=== PATIENT | male | born 1950 | race Caucasian/White ===

== ENCOUNTER 2025-03-04 21:39 | Inpatient (IN) | payer OTHER, SELFPAY ==
[2025-03-04] VITALS (8 sets, daily range): BP systolic 71–152; BP diastolic 49–87; BMI 22.4; BMI 22.0
--- NOTE | 2025-03-04 19:13 | ED.GENMED ---
History of Present Illness
General
Chief Complaint: Unresponsive
Source: ambulance crew
Time Seen by Provider: 03/04/25 19:06
History of Present Illness
History of Present Illness:
74-year-old male brought to the emergency room from [facility] where he has been unresponsive. Medics state the patient was under hospice care for severe dementia. For some reason or another his status was changed prompting his
transport here to the emergency room. Patient is unresponsive and unable to provide any history. Called to discuss with the patient's at left a message.
Past History
Past History
ED Past Medical History: CVA, HTN and IDDM
Social History
Tobacco: Former smoker
Alcohol: None
Phy Exam
Physical Exam
Physical Exam:
General: Nonresponsive, appears chronically ill but also acutely ill
Vitals: Febrile at 104, tachycardic, hypotensive
Head: Atraumatic
Eyes: Pupils equal, EOMI
Throat: Airway intact, dry mucosa, pooling of secretions in the posterior pharynx
Neck: Trachea midline
Lungs: Rhonchi bilateral
Heart: Regular rate, no murmurs
Abd: Soft, Nontender, No pulsatile mass
Neuro: No voluntary movement of the extremities
Skin: Warm, dry, no rash
Extremities: pulses equal b/l, no edema
Sepsis
Sepsis Screening
Sepsis Assessment: Severe Sepsis
Sepsis Screening: Lactate >2mmol/L and Hypotension
Sepsis Screen
Sepsis Screen: Severe Sepsis
Date: 03/05/25
Time: 00:21
Course
Orders/Labs/Results
Orders:
Orders
03/04/25 18:55
Electrocardiogram (*1) Urgent
Reason for Study: Other
Other Reason for Exam: Respiratory Distress
Cardiac Monitoring- Treatment ONCE
EKG- Treatment ONCE
IV Insert/Care/Rem.- Treatment PRN
CR Chest Portable - 1 View Urgent
Comment:
Reason For Exam: respiratory distress
Reason Study Needs to be Portable: Patient Unstable
03/04/25 19:07
0.9% Sodium Chloride 1000 ml [Nss] 1,000 ml IV BOLUS
Acetaminophen [Tylenol/Feverall] 650 mg RECTAL NOW STA
03/04/25 19:10
CT Head W/o Iv Contrast Urgent
Comment:
Reason For Exam: altered mental status
03/04/25 19:17
Complete Blood Count/With Diff Urgent
Comprehensive Metabolic Panel Urgent
Lactic Acid Q4H
Comment: WITH 1ST SET OF BLOOD CULTURES,CANCEL 2ND LACTIC ACID IF FIRST <2
NT-proBNP Urgent
Troponin I Urgent
Venous Blood Gas Urgent
%Oxygen/Room Air: 4L
Blood Culture Urgent
SPIKE Source: Blood/Venous
Specimen Description:
03/04/25 19:28
0.9% Sodium Chloride 1000 ml [Nss] 2,000 ml IV BOLUS
03/04/25 19:33
Urinalysis Reflex To Culture Urgent
Date Specimen was Collected: 03/04/25
Time Specimen was Collected: 19:32
Urine Microscopic Reflex Cult Urgent
03/04/25 19:34
Blood Culture Urgent
SPIKE Source: Blood/Venous
Specimen Description:
Date Specimen was Collected: 03/04/25
Time Specimen was Collected: 19:32
03/04/25 20:10
Piperacillin/Tazo 4.5 Gram [Zosyn] 4.5 gram in 100 ml IV NOW
03/04/25 21:16
Morphine Sulfate See Protocol IV [id number] PRN
Begin protocol on step:: refer to Morphine infusion order
03/04/25 21:18
Vancomycin [Vancocin] 1,500 mg 0.9% Sodium Chloride 500 ml [Nss] 500 ml IV NOW
03/04/25 21:23
Admit/Transfer Patient As Directed
Co-Sign Provider:
Level of Care: Inpatient admission
Assign to:: Medical/Surgical
Physician / Group: Fernando Early
Diagnosis: severe sepsis, end-of-life care
Reason for Hospitalization: severe sepsis, end-of-life care
Expected length of stay greater than two midnights?: Yes
ELOS- Estimated Length of Stay in days: 3
I certify the patient meets the requirements for IP care: Yes
PRN Pain Medication Management As Directed
May give lesser potent ordered pain med per pt: Yes
preference::
Protocol:: Medication orders for pain may be administered in a
manner that supports deferring to patient preference
when the pt is:
- Requesting an ordered lesser potent pain medication.
Least to most potent pain medications are defined
as: acetaminophen < NSAID < tramadol < opioids
(morphine, oxycodone, hydromorphone).
- Requesting a lesser dose of the same medication IF
ORDERED.
- Requesting a less intrusive route of administration
if both routes are prescribed by the provider (PO <
IV).
03/04/25 21:24
Code Status As Directed
Resuscitation Status: Do not resuscitate
Reached after discussion with pt or family/Healthcare POA: Yes
Decision communicated with: patients spouse
DNR Bracelet Application ONCE
03/04/25 21:30
Morphine Sulfate 100 mg/100 ml [Morphine] 100 mg in 100 ml IV PER PROTOCOL
Begin protocol on step:: 1
03/04/25 21:32
Glycopyrrolate [Robinul] 0.2 mg IV Q4HPRN PRN
03/04/25 22:43
Bisacodyl [Dulcolax] 10 mg RECTAL DAILYPRN PRN
Lorazepam [Ativan] 1 mg IV Q2HPRN PRN
Ondansetron Injectable [Zofran] 4 mg IV Q6HPRN PRN
03/04/25 22:43
Case Management Consult ONCE
Case Management Consult: Hospice
Hospice: Evaluation and treat
VTE Contraindication Routine
VTE Mechanical Device Contraindication: Comfort Care mgmt
Pharmocologic Contraindication: Comfort Care mgmt
Activity As Directed
Activity Level: As Tolerated
Comfort Measures As Directed
Comment: Pain and Dyspnea assessment every 4 hours
End of Life Symptom Assessment Q4
INT (Intravenous Needle Therapy) As Directed
Vital Signs As Directed
Frequency: Per unit guidelines
03/05/25 03:00
Acetaminophen [Tylenol/Feverall] 650 mg RECTAL Q4HPRN PRN
Acetaminophen [Tylenol] 650 mg PO Q4HPRN PRN
Abnormal Lab Results
03/04/25 03/04/25
19:17 19:33
RBC 3.63 L 10^6/uL
(4.70-6.10)
Hgb 10.2 L g/dL
(13.0-18.0)
Hct 30.5 L %
(39.0-52.0)
Absolute Lymphs (auto) 0.6 L 10^3/uL
(1.2-3.4)
Absolute Monos (auto) 0.7 H 10^3/uL
(0.1-0.6)
Neutrophils % 81.3 H %
(42.2-75.2)
Lymphocytes % 8.0 L %
(20.5-51.1)
Monocytes % 9.9 H %
(1.7-9.3)
VBG pH 7.45 H
(7.32-7.43)
VBG pO2 62 H mmHg
(30-50)
VBG HCO3 32.7 H mmol/L
(22-27)
Carbon Dioxide 31 H mmol/L
(22-30)
BUN 26 H mg/dl
(9-20)
Glucose 320 H mg/dl
(70-99)
Lactic Acid 3.3 H mmol/L
(0.7-2.0)
Calcium 8.2 L mg/dl
(8.4-10.2)
Alkaline Phosphatase 417 H U/L
(38-126)
Total Protein 4.9 L g/dl
(6.3-8.2)
Albumin 2.3 L g/dl
(3.5-5.0)
Urine Ketones 3+ A
(Negative)
Urine Urobilinogen 3+ A
(Neg - 1+)
Urine Albumin (Reflex) 2+ A
(Neg - Trace)
03/04/25 19:17
03/04/25 19:17
Vital Signs
Initial and Last Documented VS:
Initial Vital Signs
Temp Pulse BP Pulse Ox
104 F H 123 76/52 98
03/04/25 18:52 03/04/25 18:52 03/04/25 18:52 03/04/25 18:52
Last Documented Vital Signs
Temp Pulse Resp BP Pulse Ox
102.4 F H 136 24 152/87 91
03/04/25 23:10 03/04/25 23:10 03/04/25 23:10 03/04/25 23:10 03/04/25 23:10
MDM/Problems Addressed
Differential Diagnosis Includes:
Severe sepsis, septic shock from UTI, pneumonia, wound infections
MDM/Problems Addressed:
Patient presents with decreased mental status, fever, tachycardia. Fluid resuscitation initiated pending conversation with family. Source of infection appears to be pneumonia and possibly his wound. Broad-spectrum antibiotics initiated.
Discussed patient's status with family. Initially they wanted 'everything done'. We did discuss his quality of life and whether he would truly want to be kept alive on a ventilator or have CPR. After discussing the details of these interventions
the family has decided to make him a DNR. Given his overall poor condition, decubiti, likely aspiration pneumonia at seemingly severe dementia comfort measures would be appropriate. However I did not get the impression they are quite prepared to
make that decision.
*Pulse Oximetry
SaO2: 98
Oxygen Mode of Delivery: Non-rebreather mask
Patient hypoxic: no
*EKG
Interpreted by ED Provider?: Yes
Heart Rate: 123
Rate: tachycardiac
Rhythm: sinus tachycardia
[place]: normal axis
Interval: normal interval
QRS Pattern: normal QRS
Ischemia: non-specific ST changes
*Paper Novelty Maker Interpretation
Rate: tachycardiac
Interpretation: abnormal
Rhythm: sinus tachycardia
*Critical Care Note
Total Time (30-74mins, 75-104mins- exclusive of procedures): 41 min
comment:
Critical care statement: A total of 41 minutes of critical care time was provided for this patient. This includes management of unstable vital signs, evaluation of the patient at bedside, reviewing the patient's pertinent medical records, discussion
with consultants, review of old EKGs and review of pertinent medical records. This time with separate from time utilized to perform the aforementioned documented procedures
ED Attending Note
-
Portions of this chart may have been created with voice recognition software.� Occasional wrong word or��sound alike� substitutions may have occurred due to the inherent limitations of voice recognition software.
Discharge Plan
Departure
Patient Disposition: Admit
Date of Disposition: 03/04/25
Time of Disposition: 20:15
Presentation/result/management discussed w/ accepting MD/DO: Hospitalist
Condition: Fair
Discharge Problem:
Pneumonia, Sepsis
Interventions
Interventions:
*Risk Screen - Suicide Last Done: 03/04/25 19:08
*General Assessment Last Done: 03/04/25 19:09
*Neglect/Abuse Screening Last Done: 03/04/25 19:01
*ED- Fall Risk Assessment Last Done: 03/04/25 19:00
*ED COVID-19 Vaccine History Last Done: 03/04/25 19:00
*Nursing Disposition Last Done: 03/04/25 22:50
ED- Neurological Assessment Last Done: 03/04/25 19:05
Discharge Date and Time
Discharge Date/Time: 03/04/25 22:51
[2025-03-04 19:25] LABS: % Basophils 0.3 % (0-2); % Eosinophils 0.1 % (0-6); % Immature Granulocytes 0.4 % (0-0.5); % Monocytes 9.9 % (1.7-9.3); % Neutrophils 81.3 % (42.2-75.2); Absolute Lymphocytes 0.6 10^3/uL (1.2-3.4); Absolute Monocytes 0.7 10^3/uL (0.1-0.6); Absolute Neutrophils 5.6 10^3/uL (1.4-6.5); Hematocrit 30.5 % (39.0-52.0); Hemoglobin 10.2 g/dL (13.0-18.0); Mean Corp Hgb Conc. 33.4 g/dL (33.0-37.0); Mean Corpuscular Hgb 28.1 pg (27.0-31.0); Mean Platelet Volume 8.4 fL (7.4-10.4); Nucleated Red Blood Cells % 0 % (-); Platelet Count 386 10^3/uL (130-400); Red Blood Cell Count 3.63 10^6/uL (4.70-6.10); Red Cell Dist. Width 13.6 % (11.5-14.5); Venous Blood Gas B.E. 7.7 mmol/L (-4 to +4); Venous Blood Gas HCO3 32.7 mmol/L (22-27); Venous Blood Gas O2 Sat % 92.7 %; Venous Blood Gas pCO2 47 mmHg (35-48); Venous Blood Gas pH 7.45 (7.32-7.43); Venous Blood Gas pO2 62 mmHg (30-50); White Blood Cell Count 6.9 10^3/uL (4.8-10.8)
[2025-03-04 19:29] LABS: Venous Blood Gas O2 Therapy 4L
[2025-03-04 19:39] LABS: Lactic Acid 3.3 mmol/L (0.7-2.0)
[2025-03-04 19:49] LABS: Urine Albumin 2+ (Neg - Trace); Urine Bilirubin Negative (Negative); Urine Character Clear (Clear); Urine Color Yellow; Urine Glucose Negative (Negative); Urine Ketone 3+ (Negative); Urine Leukocyte Negative (Negative); Urine Nitrite Negative (Negative); Urine Occult Blood Negative (Negative); Urine Urobilinogen 3+ (Neg - 1+)
[2025-03-04 19:50] LABS: ALT (SGPT) < 10 U/L (0-50); AST (SGOT) 57 U/L (17-59); Albumin 2.3 g/dl (3.5-5.0); Alkaline Phosphatase 417 U/L (38-126); Blood Urea Nitrogen 26 mg/dl (9-20); Calcium 8.2 mg/dl (8.4-10.2); Carbon Dioxide 31 mmol/L (22-30); Chloride 103 mmol/L (98-107); Estimated Creatinine Clearance 80 ml/min; Glucose 320 mg/dl (70-99); Potassium 4.5 mmol/L (3.5-5.1); Sodium 138 mmol/L (135-145); Total Bilirubin 0.5 mg/dl (0.2-1.3); Total Protein 4.9 g/dl (6.3-8.2); eGFR > 60.00
[2025-03-04 20:07] LABS: Urine Hyaline Cast 0-2 /LPF (0-2); Urine Mucus Few; Urine Red Blood Cell 0-2 /HPF (0-2)
[2025-03-04 20:09] LABS: NT-proBNP 1570 pg/ml; Troponin I < 0.012 ng/ml
[2025-03-04] MEDS: NSS 2000 IV (20:15)
[2025-03-04] MEDS: TYLENOL/FEVERALL 650 MG RECTAL (20:33)
[2025-03-04] MEDS: ZOSYN 100 IV (20:33)
--- NOTE | 2025-03-04 20:38 | HPS.HSE ---
Family Physician
-
Family Physician: Gato Bell, DO
Chief Complaint
-
unresponsive
History of Present Illness
Patient is a 74-year-old male with past medical history significant for dementia, HFpEF, coronary artery disease, atrial fibrillation, hypertension, IDDM, history of CVA and hyperlipidemia who presented to [facility] ED from [facility] for
evaluation of unresponsiveness. Patient family at [facility] to assist with HPI. [facility] He became unresponsive and staff sent for evaluation. Patient with stage IV sacral wound that is
reported as foul smelling. Unknown symptoms prior to unresponsiveness.
Medical History
Past Medical History
Past Medical History: Reports Other
Additional Past Medical History:
dementia
HFpEF
coronary artery disease
atrial fibrillation
hypertension
IDDM
history of CVA
hyperlipidemia
Past Surgical History: Reports Other
Additional Past Surgical History:
CABG
Social History
Unable to obtain full social history at this time due to: Patient Non-verbal
Family History
Family History: Not pertinent
Allergies / Home Medications
Allergies reflects when Allergies were last updated in [employer].
Home Medications with original date entered in [employer]
Allergy/Medication List:
Allergies
Allergy/AdvReac Type Severity Reaction Status Date / Time
amlodipine Allergy Unknown Verified 07/10/23 14:20
clonidine Allergy Unknown Verified 07/10/23 14:20
hydrochlorothiazide (From Allergy Unknown Verified 07/10/23 14:20
Hyzaar)
losartan (From Hyzaar) Allergy Unknown Verified 07/10/23 14:20
minoxidil Allergy Unknown Verified 07/10/23 14:20
rosuvastatin Allergy Unknown Verified 07/10/23 14:20
Thiazides Allergy Unknown Verified 07/10/23 14:20
Home Medications
acetaminophen 325 mg tablet 650 mg PO Q6H PRN temp>100.4F/mild pain 03/04/25
acetaminophen 650 mg rectal suppository 650 mg IL Q6H PRN mild pain/elevated temp. 03/04/25
aspirin 81 mg tablet,delayed release 81 mg PO DAILY 03/04/25
bisacodyl 10 mg rectal suppository 10 mg IL DAILY PRN if MOM ineffective 03/04/25
carbidopa 25 mg-levodopa 100 mg tablet (Sinemet) 1 tab PO BID 03/04/25
divalproex 250 mg tablet,delayed release 250 mg PO BID 03/04/25
divalproex 500 mg tablet,delayed release 500 mg PO BID 03/04/25
docusate sodium 100 mg tablet 100 mg PO BID 03/04/25
furosemide 40 mg tablet 40 mg PO DAILY 03/04/25
hydralazine 50 mg tablet 50 mg PO BID 03/04/25
isosorbide mononitrate 60 mg tablet,extended release 24 hr 60 mg PO Q12H 03/04/25
lorazepam 2 mg/mL oral concentrate 2 mg PO Q8HPRN PRN agitation/anxiety 03/04/25
magnesium hydroxide 400 mg/5 mL oral suspension (Milk of Magnesia) 30 ml PO DAILY PRN constipation 03/04/25
melatonin 3 mg tablet 6 mg PO HS 03/04/25
metformin 500 mg tablet 1,000 mg PO BID 03/04/25
methimazole 5 mg tablet 2.5 mg PO DAILY 03/04/25
ondansetron HCl 4 mg tablet 4 mg PO Q8H PRN nausea/vomiting 03/04/25
potassium chloride 20 mEq tablet,extended release(part/cryst) 20 meq PO BID 03/04/25
quetiapine 25 mg tablet (Seroquel) 25 mg PO DAILY 03/04/25
quetiapine 50 mg tablet (Seroquel) 50 mg PO HS 03/04/25
sennosides 8.6 mg tablet (senna) 8.6 mg PO BID 03/04/25
sodium phosphates 19 gram-7 gram/118 mL enema (Fleet Enema) 118 ml IL DAILYPRN PRN constipation 03/04/25
sodium phosphates 19 gram-7 gram/118 mL enema (Fleet Enema) 118 ml IL DAILYPRN PRN if supp ineffective 03/04/25
Review of Systems
-
Unable to obtain full review of systems at this time due to: Patient Non-verbal
Physical Exam
Vital Signs
Vital Signs
Temp Pulse Resp BP Pulse Ox
104 F H 118 21 130/65 94
03/04/25 18:52 03/04/25 19:30 03/04/25 19:30 03/04/25 19:30 03/04/25 19:22
Physical Exam
General: Fever and Other (obtunded, hypotensive )
HEENT: Oxygen; No Moist mucous membranes
Respiratory: Clear and Rhonchi
Cardiac: S1/S2, Regular Rhythm and Tachycardia
Breast: Deferred by me
GI: Soft, Non Tender, Non Distended and Normal Bowel Sounds; No Organomegaly
Rectal: Deferred by Provider
Genito-urinary: Deferred by me
Musculoskeletal: No Clubbing, No Cyanosis and No Edema
Skin: IV/Catheter Site
Neuro: Nonfocal/grossly intact and Other (obtunded )
Laboratory Results
-
03/04/25 19:17
03/04/25 19:17
Laboratory Results
Lactic Acid 3.3 mmol/L (0.7-2.0) H 03/04/25 19:17
Total Bilirubin 0.5 mg/dl (0.2-1.3) 03/04/25 19:17
AST 57 U/L (17-59) 03/04/25 19:17
ALT < 10 U/L (0-50) 03/04/25 19:17
Alkaline Phosphatase 417 U/L (38-126) H 03/04/25 19:17
Troponin I < 0.012 ng/ml 03/04/25 19:17
Data Reviewed
-
CT Scan: Report Reviewed by me (Head: No acute intracranial abnormality noted.)
Lab Data: Labs Reviewed by me (Lactic 3.3, BNP 1570)
Impression/Plan
-
IMPRESSION/PLAN:
#change in mental status, unresponsive 2/2 sepsis from sacral wound infection??
Lactic 3.3, BNP [address]: No acute intracranial abnormality noted.
EKG: SINUS TACHYCARDIA
NONSPECIFIC ST ABNORMALITY
Blood cx: pending
Patient previously on hospice services at facility
- Admit to med/surg
- Comfort Care orders with morphine gtt
- Consult hospice services
#dementia
- stop Sinemet and Seroquel
#HFpEF
- stop furosemide, isosorbide and
#coronary artery disease
s/p CABG
- stop aspirin
#hypertension
- stop hydralazine and furosemide
#IDDM
- stop metformin
#hyperthyroid??
- stop methimazole
#atrial fibrillation
#history of CVA
#hyperlipidemia
Code status: DNR
DVT prophylaxis: n/a
--- NOTE | 2025-03-04 20:46 | W.PN.UPDATE ---
Update Note
Progress Note Update
This note serves as an addendum to the H&P by electric lift truck driver JEN Ann Lynn
HPI
74M Former smoker , [place] [facility] at [facility] under hospice care , severe dementia, non ambulatory, WC bound, minimally verbal, est ASCVD, HX CVA, HX CVA, IDDM, Prx AF , HLD, chr HFpEF, CAD, CABG, HTN seen at ER;
- under hospice care at [place] for advanced progressive dementia
- Febrile 104 , tachycardic, hypotensive
- unresponsive
- ER dw family and opted for DNR
Relevant VS
03/04/25
18:52 03/04/25
18:57 03/04/25
19:00
Temp 104 F H
Pulse 123
Resp Rate 24
Blood pressure 76/52 95/75
SaO2 98
Oxygen Mode of Delivery Non-rebreather
mask
PE
Gen: deeply unresponsive
HEENT: anicteric
Neck: supple
Skin: large stage IV decub with foul odor
Laboratory Tests
12/27/18 07/10/23 03/04/25
10:24 14:44 19:17
WBC 3.8 L 6.9
Hgb 13.3 10.2 L
Plt Function - Aspirin 452
VBG pH 7.45 H
VBG pCO2 47
VBG pO2 62 H
Carbon Dioxide 31 H
BUN 26 H
Creatinine 0.8
eGFR > 60.00
Glucose 320 H
Lactic Acid 3.3 H
Calcium 8.2 L
Troponin I < 0.012
Faf-V-Edwvblmyztf Pept 1570
Albumin 2.3 L
EKG
SINUS TACHYCARDIA
NONSPECIFIC ST ABNORMALITY
ABNORMAL ECG
WHEN COMPARED WITH ECG OF 10-JUL-2023 15:31,
VENT. RATE HAS INCREASED BY 42 BPM
NONSPECIFIC T WAVE ABNORMALITY NO LONGER EVIDENT IN ANTERIOR LEADS
CXR pending report
HCT
CT Head W/o Iv Contrast
Last hospitalist admission: 12/26/2018 - 12/28/2018
ASSESSMENT & PLAN
Critically ill with severe sepsis with severe hypotension s/p 2.1 L NS
Septic shock with likely source infected stage IV sacral decub +/_ PNA
Unresponsive due to profound TME with marked HYDROGRAPHIC SURVEYOR depression
Protecting AW so far
Multiple comorbidity as above
Advanced dementia / vascular severe dementia, non ambulatory, WC bound, minimally verbal, est ASCVD, HX CVA, HX CVA, IDDM, Prx AF , HLD, chr HFpEF, CAD, CABG, HTN
Under hospice care at [place]
- DNR
- Grave prognosis
- case discussed in length with spouse , son and daughter
- family agree with comfort measures only ( No more labs , No further ABx ) with end of life care
- Medications appropriate for comfort measures only
- Comfort measures only
- Hospice care consult
- Sharron service
- Private room
DVT Px contraindicated
[2025-03-04] MEDS: MORPHINE 100 IV (22:13)
[2025-03-04] MEDS: ROBINUL 0.2 MG IV (22:18)
[2025-03-05 07:00] VITALS: BP 101/54
--- NOTE | 2025-03-05 09:01 | CM ---
Reviewed the chart notes and spoke with [place] Master Brewer at [facility]. Per Steph, patient is chcf and wheelchair bound. CM consult for hospice received. Referral sent to Hospice via [facility]. CM continues to be available to
patient/family and is monitoring medical plan for needs at discharge.
Plan: Discharge plans will depend on the patient's progress.
--- NOTE | 2025-03-05 10:11 | W.PN.HOSP.TC ---
Addendum entered and electronically signed by Jaun Mccabe DO 03/06/25 14:05:
Stage I pressure injury of the right heel, POA
Original Note:
Today's Communication/Plan
-
Continue comfort care measures
Assessment / Plan
Assessment / Plan
Assessment/plan
74-year-old male with past medical history of severe dementia, HFpEF, CAD, A-fib, hypertension, DM 2, nonambulatory/wheelchair-bound, history of CVA was sent from [facility] to ER, for unresponsiveness. At presentation WBC 6.9, Hb�10.2, BUN�26,
BG�320. VS�temperature�104, pulse�123, BP�76/52. Lactate�3.3, BNP�1570.
�Patient has a large decubitus sacral ulcer, and left and right heel ulcers. CT head�no evidence of acute intracranial abnormality. X-ray chest with evidence of severe right lung pneumonia.
�Patient was septic at presentation, source likely from pneumonia or sacral ulcer. Patient was started on IV fluids and IV antibiotics.
�ER physician has discussed the details of further management, family has decided to go with DNR.
�Patient was on hospice at [facility] until July 2024. After goals of care discussion with the family, they have opted for comfort measures.
� Hospice care consult in place.
� Continue comfort care measures.
Anticipated Discharge: 24 - 48 hours
Subjective/Interval History
-
Date of Service: March 05, 2025
Patient does not respond to verbal stimuli, is sleeping. He responds to sternal rub.
Objective Data
-
Vital Signs:
Vital Signs
Temp Pulse Resp BP Pulse Ox
99.2 F 124 16 101/54 57
03/05/25 07:00 03/05/25 07:00 03/05/25 07:00 03/05/25 07:00 03/05/25 07:00
I&O
03/04/25 03/05/25 03/06/25
06:59 06:59 06:59
Output Total
Balance - / -30
Review of Systems
-
Unable to obtain full review of systems at this time due to: Acuity
Physical Exam
-
General: Other (Not responsive, appears dehydrated)
HEENT: Normocephalic and Atraumatic
Respiratory: Clear to Auscultation
Cardiac: Regular Rhythm, S1/S2 and Tachycardic
GI: Soft, Nontender, Nondistended and Normal Bowel Sounds
Skin: Warm, Dry and Decubitus Ulcers
--- NOTE | 2025-03-05 11:26 | HOSPNOTE ---
Spoke with Attending and he would like to keep the patient on comfort measures. The patient appears actively dying but appears very comfortable. I will continue to follow.
--- NOTE | 2025-03-05 14:01 | PTCARENOTE ---
Patient resting comfortably, some periods of apnea and snoring. Family at bedside. Morphine drip step1 maintained.
[2025-03-05 19:27] VITALS: BP 113/72
[2025-03-06 07:00] VITALS: BP 158/84
--- NOTE | 2025-03-06 07:13 | W.PN.HOSP.TC ---
Today's Communication/Plan
-
Continue comfort measures
Assessment / Plan
Assessment / Plan
Assessment/plan
74-year-old male with past medical history of severe dementia, HFpEF, CAD, A-fib, hypertension, DM 2, nonambulatory/wheelchair-bound, history of CVA was sent from [facility] to ER, for unresponsiveness. At presentation WBC 6.9, Hb�10.2, BUN�26,
BG�320. VS�temperature�104, pulse�123, BP�76/52. Lactate�3.3, BNP�1570.
�Patient has a large decubitus sacral ulcer, and left and right heel ulcers. CT head�no evidence of acute intracranial abnormality. X-ray chest with evidence of severe right lung pneumonia.
�Patient was septic at presentation, source likely from pneumonia or sacral ulcer. Patient was started on IV fluids and IV antibiotics.
�ER physician has discussed the details of further management, family has decided to go with DNR.
�Patient was on hospice at [facility] until July 2024. After goals of care discussion with the family, they have opted for comfort measures.
� Hospice care consult in place.
�Patient had a fever spike- Tylenol as needed for comfort
� Continue comfort care measures.
DNR
Anticipated Discharge: 24 - 48 hours
Subjective/Interval History
-
Date of Service: March 06, 2025
Patient is sleeping, responding only to sternal rub. at bedside.
Objective Data
-
Vital Signs:
Vital Signs
Temp Pulse Resp BP Pulse Ox
99.2 F 93 16 113/72 92
03/05/25 19:27 03/05/25 19:27 03/05/25 19:27 03/05/25 19:27 03/05/25 19:27
I&O
03/05/25 03/06/25 03/07/25
06:59 06:59 06:59
Output Total 30 / 30
Balance -30 / -30
Physical Exam
-
General: No Apparent Distress
HEENT: Normocephalic and Atraumatic
Respiratory: Other (Apneic, rattling sounds)
Cardiac: Regular Rhythm and S1/S2
GI: Soft, Nontender and Nondistended
Skin: Warm and Dry
--- NOTE | 2025-03-06 08:45 | CM ---
Reviewed the chart notes. CM continues to be available to patient/family.
Plan: Comfort care continues.
[2025-03-06] MEDS: TYLENOL/FEVERALL 650 MG RECTAL ×2 (08:46→19:50)
--- NOTE | 2025-03-06 10:10 | PN.CDI ---
CDI
- -
CDI:
Physician Documentation Request
Admit Date: 03/04/25 21:39
Dear Doctor Roberta Ortiz,
Patient admitted for sepsis.
Nursing documentation clinical panel wound care
03/04/25
23:15
Is this a pressure-related injury? [Present on admission Right Heel] Yes
Pressure injury stage [Present on admission Right Heel] Stage 1
Size in centimeters (length/width/depth) [Present on admission Right Heel] 3x3
Wound treatment comments [Present on admission Right Heel] heel boot
Physician documentation of the type and location of wounds is required for compliant documentation. Based on the above clinical findings and your assessment, please provide the following in your progress note:
1. Location of the ulcer/wound, including laterality.
2. Type (etiology) of ulcer/wound:
- Diabetic ulcer
- Arterial (ischemic) ulcer
- Traumatic wound
- Venous stasis ulcer
- Pressure (decubitus) ulcer
- Non-healing surgical wound
- Other
- Unable to determine
3. For a non-pressure ulcer, please indicate the depth/severity:
- Limited to the breakdown of skin
- With fat layer exposed
- With necrosis of muscle
- With necrosis of bone
- Other
- Unable to determine
4. If a pressure ulcer, please also include the stage* of the ulcer:
- Stage 1 - Skin intact, non-blanchable redness
- Stage 2 - Partial thickness loss of dermis, includes intact or open blister
- Stage 3 - Full thickness tissue not including bone, tendon or muscle
- Stage 4 - Full thickness tissue loss, including exposed bone, tendon or muscle
- Unstageable - Full thickness loss in which the base of the ulcer is covered by slough (yellow, blue, overton, green or brown) and/or eschar (blue, brown or black) in the wound bed.
- Unable to determine
Use of terms such as suspected, likely, concern for, or probable (associated with a specific diagnosis that is being evaluated, monitored, or treated as if it exists) are acceptable and can be coded in the inpatient setting, when documented at the
time of discharge.
Thank you,
Debbie Castelan RN, BSN
CDI Specialist
Available via [place] text
Please use your independent medical judgment in providing your response.
*Source: National Pressure Ulcer Advisory Panel (NPUAP)
[2025-03-06] MEDS: ROBINUL 0.2 MG IV ×2 (12:13→20:01)
--- NOTE | 2025-03-06 13:49 | HOSPNOTE ---
Patient remains on comfort care.
[2025-03-06 19:23] VITALS: BP 165/88
[2025-03-07 07:00] VITALS: BP 133/90
--- NOTE | 2025-03-07 07:13 | W.PN.HOSP.TC ---
Addendum entered and electronically signed by Irina Ortiz MD, Resident 03/07/25 15:26:
Right heel pressure ulcer stage 1
Original Note:
Today's Communication/Plan
-
Continue comfort care measures
Assessment / Plan
Assessment / Plan
Assessment/plan
74-year-old male with past medical history of severe dementia, HFpEF, CAD, A-fib, hypertension, DM 2, nonambulatory/wheelchair-bound, history of CVA was sent from [facility] to ER, for unresponsiveness. At presentation WBC 6.9, Hb�10.2, BUN�26,
BG�320. VS�temperature�104, pulse�123, BP�76/52. Lactate�3.3, BNP�1570.
�Patient has a large decubitus sacral ulcer, and left and right heel ulcers. CT head�no evidence of acute intracranial abnormality. X-ray chest with evidence of severe right lung pneumonia.
�Patient was septic at presentation, source likely from pneumonia or sacral ulcer. Patient was started on IV fluids and IV antibiotics.
�ER physician has discussed the details of further management, family has decided to go with DNR.
�Patient was on hospice at [facility] until July 2024. After goals of care discussion with the family, they have opted for comfort measures.
Patient's and daughter at bedside. Patient is febrile. Sleeping and minimally responsive.
� Hospice care consult in place.
� Continue comfort care measures.
DNR
Anticipated Discharge: Within 24 hours
Subjective/Interval History
-
Date of Service: March 07, 2025
Objective Data
-
Vital Signs:
Vital Signs
Temp Pulse Resp BP Pulse Ox
102.2 F H 136 18 165/88 59
03/06/25 19:23 03/06/25 19:23 03/06/25 19:23 03/06/25 19:23 03/06/25 19:23
I&O
03/06/25 03/07/2503/08/25
06:59 06:59 06:59
Intake Total 0 / 0
Balance 0 / 0
Physical Exam
-
General: No Apparent Distress
HEENT: Normocephalic and Atraumatic
Respiratory: Other (Apneic, rattling sounds, snoring)
Cardiac: Regular Rhythm and S1/S2
GI: Soft, Nontender and Nondistended
Skin: Warm and Dry
[2025-03-07] MEDS: MORPHINE SULFATE 2 MG IV (09:28)
[2025-03-07] MEDS: TYLENOL/FEVERALL 650 MG RECTAL ×2 (09:28→19:51)
[2025-03-07] MEDS: ROBINUL 0.2 MG IV (09:29)
--- NOTE | 2025-03-07 10:01 | CM ---
Reviewed the chart notes. Family at bedside. CM continues to be available to patient/family.
Plan: Comfort care continues.
[2025-03-07] MEDS: MORPHINE 100 IV (10:51)
[2025-03-07 19:55] VITALS: BP 124/77
[2025-03-08 07:00] VITALS: BP 146/82
--- NOTE | 2025-03-08 08:37 | W.PN.HOSP.TC ---
Today's Communication/Plan
-
Continue comfort measures
Assessment / Plan
Assessment / Plan
Assessment/plan
74-year-old male with past medical history of severe dementia, HFpEF, CAD, A-fib, hypertension, DM 2, nonambulatory/wheelchair-bound, history of CVA was sent from [facility] to ER, for unresponsiveness. At presentation WBC 6.9, Hb�10.2, BUN�26,
BG�320. VS�temperature�104, pulse�123, BP�76/52. Lactate�3.3, BNP�1570.
�Patient has a large decubitus sacral ulcer, and left and right heel ulcers. CT head�no evidence of acute intracranial abnormality. X-ray chest with evidence of severe right lung pneumonia.
�Patient was septic at presentation, source likely from pneumonia or sacral ulcer. Patient was started on IV fluids and IV antibiotics.
�ER physician has discussed the details of further management, family has decided to go with DNR.
�Patient was on hospice at [facility] until July 2024. After goals of care discussion with the family, they have opted for comfort measures.
Patient's at bedside. Patient is sleeping and minimally responsive. Febrile and tachycardic.
� Hospice care consult in place.
� Continue comfort care measures.
DNR
Anticipated Discharge: Within 24 hours
Subjective/Interval History
-
Date of Service: March 08, 2025
Objective Data
-
Vital Signs:
Vital Signs
Temp Pulse Resp BP Pulse Ox
103.3 F H 127 16 146/82 71
03/08/25 07:00 03/08/25 07:00 03/08/25 07:00 03/08/25 07:00 03/08/25 07:00
I&O
03/07/25 03/08/25 03/09/25
06:59 06:59 06:59
Intake Total 0 / 0
Output Total 400 / 400
Balance 0 / 0 -400 / -400
Physical Exam
-
General: No Apparent Distress
HEENT: Normocephalic and Atraumatic
Respiratory: Other (Apneic)
Cardiac: S1/S2 and Tachycardic
Genito-urinary: [place]
Skin: Warm, Dry and Ulcers
--- NOTE | 2025-03-08 09:39 | CM ---
Reviewed the chart notes. CM continues to be available to patient/family.
Plan: Comfort care continues.
[2025-03-08] MEDS: ROBINUL 0.2 MG IV ×2 (10:27→14:45)
[2025-03-08] MEDS: MORPHINE SULFATE 2 MG IV ×4 (10:28→12:55)
[2025-03-08] MEDS: TYLENOL/FEVERALL 650 MG RECTAL (10:28)
[2025-03-08] MEDS: ATIVAN 1 MG SL (10:36)
--- NOTE | 2025-03-08 13:08 | HOSPNOTE ---
Patient remains on comfort and we are following for support. Attending feels patient will pass today.
[2025-03-08 19:40] VITALS: BP 105/64
[2025-03-09] MEDS: TYLENOL/FEVERALL 650 MG RECTAL ×2 (02:27→08:04)
[2025-03-09] MEDS: MORPHINE SULFATE 2 MG IV ×2 (02:44→08:05)
--- NOTE | 2025-03-09 06:40 | PTCARENOTE ---
Family did not want to use Tylenol suppository for fever. Just used cool washcloth and ice pack like earlier (19:40).
[2025-03-09 07:20] VITALS: BP 106/62
--- NOTE | 2025-03-09 08:40 | W.PN.HOSP.TC ---
Today's Communication/Plan
-
Continue comfort measures
Assessment / Plan
Assessment / Plan
Assessment/plan
74-year-old male with past medical history of severe dementia, HFpEF, CAD, A-fib, hypertension, DM 2, nonambulatory/wheelchair-bound, history of CVA was sent from [facility] to ER, for unresponsiveness. At presentation WBC 6.9, Hb�10.2, BUN�26,
BG�320. VS�temperature�104, pulse�123, BP�76/52. Lactate�3.3, BNP�1570.
�Patient has a large decubitus sacral ulcer, and left and right heel ulcers. CT head�no evidence of acute intracranial abnormality. X-ray chest with evidence of severe right lung pneumonia.
�Patient was septic at presentation, source likely from pneumonia or sacral ulcer. Patient was started on IV fluids and IV antibiotics.
�ER physician has discussed the details of further management, family has decided to go with DNR.
�Patient was on hospice at [facility] until July 2024. After goals of care discussion with the family, they have opted for comfort measures.
Patient's and twin sister at bedside. Patient is sleeping and minimally responsive. Febrile, tachycardic and hypoxemic.
� Hospice care consult in place.
� Continue comfort care measures.
DNR
Anticipated Discharge: Within 24 hours
Subjective/Interval History
-
Date of Service: March 09, 2025
Patient sleeping comfortably. Patient was febrile all night. and twin sister at bedside.
Objective Data
-
Vital Signs:
Vital Signs
Temp Pulse Resp BP Pulse Ox
102.5 F H 111 14 106/62 71
03/09/25 07:20 03/09/25 07:20 03/09/25 07:20 03/09/25 07:20 03/09/25 07:20
I&O
03/08/25 03/09/25 03/10/25
06:59 06:59 06:59
Intake Total 0 / 0
Output Total 400 / 400
Balance -400 / -400 0 / 0
Review of Systems
-
All other systems: Reviewed and negative
Physical Exam
-
General: No Apparent Distress
HEENT: Normocephalic and Atraumatic
Respiratory: Other (Apneic)
Cardiac: S1/S2 and Tachycardic
GI: Soft, Nontender and Nondistended
Skin: Warm, Dry and Ulcers
--- NOTE | 2025-03-09 11:56 | W.PN.DEATH ---
Pronouncement of
-
Called to see patient to pronounce.
No spontaneous heart tones or respirations noted.
Patient not responsive to verbal stimuli.
Patient is pronounced .
Time of : 11:35
Date of : 03/09/25
Cause of : Acute hypoxemic respiratory failure secondary to pneumonia with sepsis
Family Notified: Yes
--- NOTE | 2025-03-09 14:37 | W.DCSUMMARY ---
Documented by User: Irina Ortiz MD, Resident 03/10/25 15:36
Discharge Summary
Discharge Data
Date of Admission: 03/04/25
Date of Discharge: 03/09/25
-
Pending Results: No
Hospital Course
Discharging Physician : Dr. Mccabe, Dr. Arevalo.
Principal Discharge diagnosis : Sepsis secondary to pneumonia
Hospital Course : 74-year-old male with past medical history of severe dementia, HFpEF, CAD, A-fib, hypertension, DM 2, nonambulatory/wheelchair-bound, history of CVA was sent from [facility] to ER, for unresponsiveness. At presentation WBC
6.9, Hb�10.2, BUN�26, BG�320. VS�temperature�104, pulse�123, BP�76/52. Lactate�3.3, BNP�1570.Patient has a large decubitus sacral ulcer, and left and right heel ulcers. CT head�no evidence of acute intracranial abnormality. X-ray chest with
evidence of severe right lung pneumonia. Patient was septic at presentation, source likely from pneumonia or sacral ulcer. Patient was started on IV fluids and IV antibiotics. ER physician has discussed the details of further management, family has
decided to go with DNR.
Patient was on hospice at [facility] until July 2024. After goals of care discussion with the family, they have opted for comfort measures. Hospice was consulted. Patient was continued on comfort care measures�morphine drip continued until
the patient on 03/09/2025 at 11:35 AM. Cause of �acute hypoxemic respiratory failure secondary to pneumonia with sepsis.
Important imaging findings :
Head CT�03/04/2025�no acute intracranial abnormality
Chest x-ray�03/04/2025�severe right lung pneumonia.
Discharge Plan
-
Patient Disposition:
Date/Time
Date/Time: 03/09/25 11:35
Discharge Date and Time
Discharge Date/Time: 03/09/25 11:35
Print Language: SETSWANA

Documented by User: Jaun Mccabe DO 03/10/25 17:08
Discharge Summary
Discharge Data
Date of Admission: 03/04/25
Date of Discharge: 03/09/25
Discharge Plan
-
Patient Disposition:
Date/Time
Date/Time: 03/09/25 11:35
Discharge Date and Time
Discharge Date/Time: 03/09/25 11:35
Print Language: [place]
== END 2025-03-09 11:35 | disposition expired | DRG 871 ==
LOC: 2 NORTH 21:39
PROVIDERS: Emergency Medicine; Student in an Organized Health Care Education/Training Program; ADMITTING PHYSICIAN Internal Medicine; ATTENDING PHYSICIAN Internal Medicine; EMERGENCY PHYSICIAN Emergency Medicine; FAMILY PHYSICIAN Internal Medicine
DX: A41.9 Sepsis, unspecified organism (principal); J18.9 Pneumonia, unspecified organism; J96.01 Acute respiratory failure with hypoxia; I50.32 Chronic diastolic (congestive) heart failure; Z51.5 Encounter for palliative care; Z66 Do not resuscitate; Z86.73 Personal history of transient ischemic attack (TIA), and cerebral infarction without residual deficits; Z99.3 Dependence on wheelchair; I11.0 Hypertensive heart disease with heart failure; F03.C0 Unspecified dementia, severe, without behavioral disturbance, psychotic disturbance, mood disturbance, and anxiety; I48.91 Unspecified atrial fibrillation; I25.10 Atherosclerotic heart disease of native coronary artery without angina pectoris; E11.622 Type 2 diabetes mellitus with other skin ulcer; E11.621 Type 2 diabetes mellitus with foot ulcer; E78.5 Hyperlipidemia, unspecified; L89.159 Pressure ulcer of sacral region, unspecified stage; L89.629 Pressure ulcer of left heel, unspecified stage; L89.619 Pressure ulcer of right heel, unspecified stage; R65.20 Severe sepsis without septic shock; Z87.891 Personal history of nicotine dependence; Z95.1 Presence of aortocoronary bypass graft
CPT/HCPCS: 51701; 70450; 71045; 80053; 81003; 81015; 82805; 83605; 83880; 84484; 85025; 87040; 87070; 93005; 96365; 96375; 99291